=== PATIENT | female | born 1965 | race Hispanic/Latino ===

== ENCOUNTER 2018-04-01 20:07 | Observation (INO) | payer BC ==
[2018-04-01 21:04] LABS: #Basophils 0.1 thou/uL (0.0-0.2); #Eosinphils 0.3 thou/uL (0.0-0.7); #Lymphocytes 3.1 thou/uL (1.20-3.40); #Monocytes 0.5 thou/uL (0.11-0.59); #Neutrophils 3.4 thou/uL (1.40-6.50); %Basophils 1.4 % (0.0-1.0); %Eosinophils 4.4 % (0.0-10.0); %Lymphocytes 41.5 % (21.0-51.0); %Monocytes 6.9 % (0.0-10.0); %Neutrophils 45.7 % (42.0-75.0); Mean Corpuscular HGB CONC 33.3 g/dL (32.0-36.0); Mean Corpuscular Hemoglobin 28.7 pg (27.0-31.0); Mean Corpuscular Volume 86.2 fl (81.0-99.0); Mean Platelet Volume 6.6 fL (7.4-10.4); Platelet Count 247 thou/uL (130-400); RBC Distribution Width 12.4 % (11.5-14.5); Red Blood Cell (RBC) Count 4.54 mill/uL (4.20-5.40); White Blood Cell (WBC) Count 7.4 thou/uL (4.8-10.8)
--- NOTE | 2018-04-01 21:12 | RAD ---
CHEST TWO VIEWS: HISTORY: Pain. COMPARISON: 12/28/2015 and 09/07/2016 FINDINGS: Stable left-sided transvenous pacemaker. Stable cardiac silhouette. Pulmonary vessels are within no rmal limits. Costophrenic angles are clear. No masses or consolidation. No pneumothorax or osseous abnormalities. IMPRESSION: No acute cardiopulmonary process. POS: PPP
[2018-04-01 21:28] LABS: ALT (SGPT) 15 U/L (8-55); AST (SGOT) 17 U/L (5-34); Albumin 3.8 g/dL (3.5-5.0); Alkaline Phosphatase 95 U/L (40-150); Anion Gap 13 mmol/L (10-20); BUN (Urea Nitrogen) 14 mg/dL (9.8-20.1); Bilirubin, Total 0.5 mg/dL (0.2-1.2); CK (CPK) 57 U/L (29-168); Calc. Creatinine Clearance 0 mL/min (70-130); Calcium 9.1 mg/dL (7.8-10.44); Carbon Dioxide 27 mmol/L (22-29); Chloride 105 mmol/L (98-107); Estimated GFR-MDRD 72; Globulin 3.3 g/dL (2.4-3.5); Glucose 101 mg/dL (70-105); Potassium 3.5 mmol/L (3.5-5.1); Protein, Total 7.1 g/dL (6.0-8.3); Sodium 141 mmol/L (136-145)
[2018-04-01 21:31] LABS: CKMB 0.3 ng/mL (0-6.6); Troponin I Less than 0.010 ng/mL (< 0.028)
[2018-04-02] MEDS ORDERED: Ondansetron ODT 4 MG TAB SL PRN (00:12)
[2018-04-02] MEDS ORDERED: Ondansetron HCl/PF 4 MG/2 ML Vial IVP PRN (00:12)
[2018-04-02 00:23] LABS: Troponin I Less than 0.010 ng/mL (< 0.028)
[2018-04-02 00:25] VITALS: BMI 44.3
[2018-04-02 03:18] LABS: Troponin I Less than 0.010 ng/mL (< 0.028)
[2018-04-02] MEDS ORDERED: Guaifenesin DM 100-10/5 ML UDCUP PO PRN (03:36)
[2018-04-02] MEDS ORDERED: Acetaminophen 325 MG TAB PO PRN (03:36)
[2018-04-02] MEDS ORDERED: ALPRAZolam 0.25 MG TAB PO PRN (03:36)
[2018-04-02 05:25] LABS: Cardiac Risk 3.4 (Less than 4.5)
--- NOTE | 2018-04-02 05:28 | HP ---
REASON FOR ADMISSION: Chest pain. HISTORY OF PRESENTING ILLNESS: The patient gives history of being in bed around 8:00 p.m. yesterday. She started developing sharp retrosternal chest pain, which was 10/10 in intensity. This was worse with breathing. After a few minutes, the sharp pain became heaviness in her chest all across. In v iew of her having a pacemaker, her drove her to the emergency room. In the waiting room, her chest heaviness was slowly easing up, but the patient developed headache. She denies taking any nit roglycerin tablets. No complaints of cough or expectoration. No complaints of fever. PAST MEDICAL AND SURGICAL HISTORY: History of pacemaker. Last stress test was [address] Isai suggs's office, which was abnormal and she had a cardiac catheterization done then with no flow limit ing disease per patient. Has had right knee replacement, cholecystectomy, x3, tonsillectom y, hysterectomy, hypertension, anxiety disorder, allergic bronchitis. CURRENT MEDICATIONS: Toprol-XL 50 mg daily, Nexium 40 mg daily, aspirin 81 mg p.o. daily, Xanax 0.25 mg p.o. q.6 hourly p.r.n., Singulair 10 mg daily, Prozac 20 mg daily. ALLERGIES: No known drug allergies. PERSONAL HISTORY: Does not abuse alcohol or drugs. No history of smoking. Lives with her . FAMILY HISTORY: Father at the age of 85 years, he has had history of emphysema and heart failur e. Mother of massive DC at the age of 64 years. REVIEW OF SYSTEMS: The following complete review of systems was negative, unless otherwise mentioned in the HPI or below: Constitutional: Weight loss or gain, ability to conduct usual activities. Sk in: Rash, itching. Eyes: Double vision, pain. ENT/Mouth: Nose bleeding, neck stiffness, pain, te nderness. Cardiovascular: Palpitations, dyspnea on exertion, orthopnea. Respiratory: Shortness of breath, wheezing, cough, hemoptysis, fever or night sweats. Gastrointestinal: Poor appetite, abdom inal pain, heartburn, nausea, vomiting, constipation, or diarrhea. Genitourinary: Urgency, frequenc y, dysuria, nocturia. Musculoskeletal: Pain, swelling. Neurologic/Psychiatric: Anxiety, depressio n. Allergy/Immunologic: Skin rash, bleeding tendency. PHYSICAL EXAMINATION: GENERAL: The patient is a 52-year-old female, who is currently chest pain free and is not in any acu te distress. VITAL SIGNS: Blood pressure 150/82, pulse 84 per minute, respiratory rate 20 per minute, saturating 96% on room air, temperature 98.4 degrees Fahrenheit. NECK: Supple, no elevated JVD. HEENT: Eyes: Extraocular muscles intact. Pupils are reacting to light. Oral cavity mucous membran es are moist. No exudates or congestion. CARDIOVASCULAR SYSTEM: S1, S2 heard. Regular rhythm. RESPIRATORY SYSTEM: Air entry 2+ bilateral. No rales or rhonchi. ABDOMEN: Soft, bowel sounds heard. No tenderness, rigidity or guarding. EXTREMITIES: No peripheral edema or calf tenderness. VASCULAR SYSTEM: Peripheral pulses 1+ bilateral, no ischemic ulcerations or gangrene. CENTRAL NERVOUS SYSTEM: No gross focal deficits seen. The patient is alert, awake, oriented well. PSYCHIATRIC SYSTEM: The patient's mood is euthymic. No hallucinations or delusions. LABORATORY AND X-RAY FINDINGS: EKG done shows normal sinus rhythm at 78 beats per minute, no gross S T-T wave changes. Chest x-ray done shows no acute cardiopulmonary abnormalities. Troponin x3 is neg ative. Albumin is 3.8. Liver enzymes are within normal limits. BUN 14, creatinine 0.8. Electrolyt es are stable. White count of 7, H&H 13 and 39, platelet count 247, MCV is 86 with 45% neutrophils. CLINICAL IMPRESSION AND PLAN: The patient will be under observation on telemetry for chest pain, rul e out acute coronary syndrome. Her previous stress test was 5 years ago. The patient has atypical c hest pain and in view of multiple risk factors, we will follow ACS evidence based protocol. She will be on a full dose aspirin and we will continue her Prozac and Toprol-XL as before along with Singula ir. We will obtain a nuclear stress test and lipid profile. We will continue to closely monitor her for any hemodynamic compromise.
[2018-04-02] MEDS ORDERED: Aspirin 325 MG TAB PO SCH (09:00)
[2018-04-02] MEDS ORDERED: Non-Formulary Item 1 EACH (Esomeprazole Magnesium [Nexium] 40 MG) PO SCH (09:00)
[2018-04-02] MEDS ORDERED: Famotidine 20 MG TAB PO SCH (09:00)
[2018-04-02] MEDS ORDERED: Montelukast Sodium 10 mg Tablet PO SCH (09:00)
[2018-04-02] MEDS ORDERED: FLUoxetine HCl 20 MG CAP PO SCH (09:00)
[2018-04-02] MEDS ORDERED: Enoxaparin Sodium 40 MG/0.4 ML SYRINGE SC SCH (09:00)
--- NOTE | 2018-04-02 10:34 | PDOC.EVN ---
Event Note - Event Note Event Note: 52 F presenting with chest pain and admitted to rule out ACS. Chest pain free and clinically and hemodynamically stable. Cardiac enzymes negative. Exercise stress test ordered. Will follow patient through her admission.
--- NOTE | 2018-04-02 14:13 | NM ---
CARDIAC SPECT: CLINICAL HISTORY: Chest pain. Hypertension. TECHNIQUE: A stress-only myocardial perfusion scan was performed following the intravenous administration of 31 mCi technetium-99m sestamibi. Pharmacologic stress with Adenosine was monitored and interpreted by Mary Jensen. FINDINGS: Homogeneous tracer distribution is seen in the myocardial segments on the post stress images. GATED SPECT LVEF: 69%. WALL MOTION EXAM: Normal. IMPRESSION: Normal post stress myocardial perfusion scan. POS: HANNAH
[2018-04-02 15:49] VITALS: BP 104/55; TEMP 98
--- NOTE | 2018-04-03 11:48 | DIS ---
DATE OF ADMISSION: 04/01/2018 DATE OF DISCHARGE: 04/02/2018 DISCHARGE DIAGNOSIS: Chest pain, status post pacemaker placement. HISTORY OF PRESENT ILLNESS/HOSPITAL COURSE: Ms. Alvin Carlin is a 52-year-old female who presented to the Emergency Room for chest pain. She reported at about 8:00 p.m. the day before presentation, she developed sharp retrosternal chest pain, 10/10 in intensity, pleuritic in nature. After about 5 minutes, it became a heaviness across her chest. Due to the patient having the chest pacemaker, her decided to drive her to the emergency room. While in the emergency room, her pain gradually resolved, but then she has complained of headache. She denied taking nitroglycerin tablets. She had no cough, fevers or sputum production. Medical history is significant for pacemaker placement. She had a stress test done about 5 years ago which was abnormal, following which she had a cardiac celestina terization done which showed no flow limiting disease. She also had right knee replacement, cholecys tectomy, , tonsillectomy, hysterectomy. She also has hypertension, anxiety disorder, and al lergic bronchitis. While at the emergency room, her physical examination was unremarkable. Labs wer e also largely unremarkable. An EKG done showed normal sinus rhythm with no gross ST wave changes. Chest x-ray showed no acute pulmonary abnormalities. Troponin was trended and was negative x3. Live r enzymes within normal limits. She was admitted under observation on telemetry for chest pain to ru le out ACS. She was started on aspirin. She was continued on her home medications. Her nuclear str ess test showed normal post-stress myocardial perfusion. Patient was then discharged home without in cident. DISCHARGE MEDICATIONS: Nexium 40 mg daily, metoprolol succinate 50 mg daily, Prozac 20 mg daily, Dash ax 0.25 mg 4 times daily as needed for anxiety, aspirin 81 mg daily, Singulair 10 mg daily. PHYSICAL EXAMINATION: VITAL SIGNS: Temperature 98 degree Fahrenheit, pulse rate 68, respiratory rate 18, oxygen saturation 99% on room air, blood pressure 108/56. For further physical examination, refer to today's H&P. LABORATORY DATA: WBC 7.4, hemoglobin 13, platelet count 247. Sodium 141, potassium 3.1, chloride 10 5, carbon dioxide 27, anion gap 13, BUN 14, creatinine 0.83, glucose 101, calcium 9.1. IMAGING: Chest x-ray. PROCEDURES: Cardiac stress test. CONSULTATIONS: None. CONDITION AT DISCHARGE: Stable and improved. DIET: Heart healthy. CARE GOALS: To follow up with her primary care physician within 1 week of discharge. ACTIVITY: Resume as tolerated. DISCHARGE TIME: Sixty-five minutes including chart review and documentation. DISPOSITION: Home.
== END 2018-04-02 18:19 | disposition home or self-care (01) ==
LOC: ERS 20:07 → 2SW 22:58
PROVIDERS: ADMIT Internal Medicine; ATTEND Internal Medicine
DX: R07.9 Chest pain, unspecified (principal); Z95.0 Presence of cardiac pacemaker; Z79.82 Long term (current) use of aspirin; Z79.899 Other long term (current) drug therapy; Z82.49 Family history of ischemic heart disease and other diseases of the circulatory system
CPT/HCPCS: 36415; 71046; 78452; 80053; 80061; 82550; 82553; 84484; 85025; 93005; 93017; A9500; G0378; J0153

== ENCOUNTER 2018-10-02 08:45 | Emergency (ER) | payer BC ==
[2018-10-02] MEDS ORDERED: Ketorolac Tromethamine 30 MG/ML VIAL ONE (09:05)
--- NOTE | 2018-10-02 09:41 | RAD ---
LUMBAR SPINE SERIES 3 VIEWS: HISTORY: Low back pain since yesterday after walking up stairs. FINDINGS: Vertebral bodies are normal in height. There are small osteophytes along the course of the spine. T here is a suggestion that there may be some slight disk narrowing at L5-S1. Pedicles are intact. No acute process is seen. IMPRESSION: Minimal arthritic changes of the spine. POS: MOMO
[2018-10-02 09:58] LABS: Bilirubin Negative (Negative); Blood, Urine Negative (Negative); Clarity CLEAR (Clear); Glucose, Urine (Dipstick) Negative (Negative); Leukocyte Negative (Negative); Nitrite Negative (Negative); Protein, Urine (Dipstick) Negative (Neg-Trace); Specific Gravity, Urine 1.026 (1.002-1.036); pH, Urine 6.5 (5.0-9.0)
[2018-10-02 10:23] LABS: #Basophils 0.1 thou/uL (0.0-0.2); #Eosinphils 0.2 thou/uL (0.0-0.7); #Lymphocytes 2.3 thou/uL (1.20-3.40); #Monocytes 0.4 thou/uL (0.11-0.59); #Neutrophils 3.6 thou/uL (1.40-6.50); %Basophils 0.9 % (0.0-1.0); %Eosinophils 3.1 % (0.0-10.0); %Lymphocytes 34.9 % (21.0-51.0); %Monocytes 5.7 % (0.0-10.0); %Neutrophils 55.3 % (42.0-75.0); Hemoglobin 13.3 g/dL (12.0-16.0); Mean Corpuscular HGB CONC 33.7 g/dL (32.0-36.0); Mean Corpuscular Hemoglobin 28.6 pg (27.0-31.0); Mean Corpuscular Volume 84.9 fL (78.0-98.0); Mean Platelet Volume 7.1 fL (7.4-10.4); Platelet Count 278 thou/uL (130-400); RBC Distribution Width 12.1 % (11.5-14.5); Red Blood Cell (RBC) Count 4.63 mill/uL (4.20-5.40); White Blood Cell (WBC) Count 6.4 thou/uL (4.8-10.8)
[2018-10-02 10:39] LABS: ALT (SGPT) 13 U/L (8-55); AST (SGOT) 15 U/L (5-34); Albumin 3.8 g/dL (3.5-5.0); Alkaline Phosphatase 95 U/L (40-150); Anion Gap 12 mmol/L (10-20); BUN (Urea Nitrogen) 14 mg/dL (9.8-20.1); Bilirubin, Total 0.6 mg/dL (0.2-1.2); CRP (Inflammatory) 0.78 mg/dL (= or < 0.5); Calc. Creatinine Clearance 0 mL/min (70-130); Calcium 9.2 mg/dL (7.8-10.44); Carbon Dioxide 27 mmol/L (22-29); Chloride 107 mmol/L (98-107); Estimated GFR-MDRD 85; Globulin 3.1 g/dL (2.4-3.5); Glucose 98 mg/dL (70-105); Potassium 3.7 mmol/L (3.5-5.1); Protein, Total 6.9 g/dL (6.0-8.3); Sodium 142 mmol/L (136-145)
[2018-10-02] MEDS ORDERED: Methocarbamol 1 GM in Sodium Chloride 0.9% 250 ML 250 ML IVPB SCH (10:45)
== END 2018-10-02 12:12 | disposition home or self-care (01) ==
LOC: ERS 08:45
DX: M54.5 Low back pain (principal); F32.9 Major depressive disorder, single episode, unspecified; Z79.899 Other long term (current) drug therapy
CPT/HCPCS: 72100; 80053; 81003; 85025; 85652; 86140; 96365; 96372; J1885; J2800; J7050

== ENCOUNTER 2018-10-04 08:22 | Outpatient (CLI) | payer BC | END 2018-10-04 08:23 | disposition home or self-care (01) | LOC: BICMAMMO 08:22 | PROVIDERS: ATTEND Family Medicine | DX: Z12.31 Encounter for screening mammogram for malignant neoplasm of breast (principal); N64.89 Other specified disorders of breast; Z80.3 Family history of malignant neoplasm of breast | CPT/HCPCS: 77063; 77067 ==

== ENCOUNTER 2019-08-15 08:07 | Outpatient (CLI) | payer BC | END 2019-08-15 08:08 | disposition home or self-care (01) | LOC: DTY/OP 08:07 | PROVIDERS: ATTEND Specialist | DX: Z01.818 Encounter for other preprocedural examination (principal); E66.01 Morbid (severe) obesity due to excess calories | CPT/HCPCS: 36415; 80053; 80061; 82306; 82607; 82728; 82746; 83036; 83540; 83970; 84425; 84436; 84443; 84480; 85025; 86677; 97802 ==

== ENCOUNTER 2019-09-25 16:15 | Inpatient (IN) | payer BC ==
--- NOTE | 2019-09-26 08:08 | HP ---
HISTORY OF PRESENT ILLNESS: Raegan Esquivel is a 54-year-old female, [employer] diesel bus mechanic with morbid obesity, 242 pounds, 44 BMI, comorbidities, obstructive sleep apnea, occasionally wears a CPAP at home, depression and anxiety. She has a pacemaker, followed by Dr. Ponce, having the pacemaker since February of 2011. She has stress urinary incontinence. She has had a multiple right knee surgeries and right total knee replacement and was told by Dr. Baker she will need a future left knee replacement. She on May 23, 2019, had a cardiac stress test chemical with Dr. Ponce. Dr. Ponce has endorsed weight loss surgery and states that she is a good candidate. We will obtain records from Dr. Ponce as far as cardiac clearance. She has a history of GERD that only occurs when eating late night meals with her own types of foods and takes p.r.n. PPIs. She has had a past laparoscopic cholecystectomy. She has a sister who has had gastric bypass. The patient has coworkers who have had sleeve gastrectomy. She is interested in the laparoscopic sleeve gastrectomy. She is a good candidate for that. She hopes to improve her quality of life in procrastinate left knee replacement, and when she does need a left knee replacement, she hopes to be in better health with quicker convalescence. She has tried multiple weight loss efforts nonsurgical without durable results. She has lost 25 pounds on phentermine, but of course, now that she has a pacemaker, cannot take phentermine. She has tried altered diet. She has weighed as much as 256 pounds, but has experienced a viral illness recently and has lost weight, but has continued to make dietary changes to improve weight loss. . Tobacco, none. Alcohol, none. regional company hazmat tanker driver, [employer]. Her daughter accompanies her. Children are 39, 36, and 33 years of age. PAST MEDICAL HISTORY: Multiple right knee surgeries, culminating in right total knee replacement. She is followed by Dr. Baker. She will need a left total knee replacement. Pacemaker placement in 2010, tonsillectomy, hysterectomy, laparoscopic cholecystectomy. As noted above, sleep apnea, depression, allergies, anxiety, pacemaker, stress urinary incontinence, arthralgias. REVIEW OF SYSTEMS: A 10-point noncontributory otherwise. She has had upper endoscopy by Dr. Rae in the past. PHYSICAL EXAMINATION: VITAL SIGNS: Height 5 feet 2, 242 pounds, 44 BMI. Blood pressure 132/58, pulse 71, temperature 98.1 degrees. HEAD, EARS, EYES, NOSE, AND THROAT: Unremarkable. LUNGS: Clear to auscultation. CARDIAC: Regular rate and rhythm without murmur or gallop. ABDOMEN: Obese, soft, nontender. No hernias. EXTREMITIES: Unremarkable. No ankle edema. No lymphadenopathy. NEUROLOGIC: Intact. No focal deficit. ASSESSMENT AND PLAN: Morbid obesity, 5 feet 2, 242 pounds, 44 BMI. Comorbidities, sleep apnea, arthralgias, osteoarthritis of left knee, stress urinary incontinence, occasional gastroesophageal reflux disease that should not interfere with her choice for sleeve gastrectomy, arthralgias. The patient is a good candidate with numerous nonsurgical weight loss efforts without durable results, desires laparoscopic sleeve gastrectomy. Risks and benefits discussed. She has attended online seminar and questions answered. Job ID: [id number]
--- NOTE | 2019-09-26 08:08 | HP ---
ADDENDUM: Raegan Esquivel was initially seen in 11/2018 since that time has lost 8 pounds. She is now 5 foot 242 pounds, 44 BMI preoperatively and today 342 pounds, 44 BMI. She has visited our dietitian, seeing a psychologist who believes she is an excellent candidate for surgical weight loss and visited with Dr. Ponce where she has had an echocardiogram revealing an EF of 55% to 60% with normal valvular structures and myocardial perfusion scan on May 07, 2019 that reveals no reversible ischemia and EF 64%. She is endorsed for surgery without contraindications. An EKG is unremarkable. The patient understands risks and benefits, consents. She is motivated and will do well postoperatively. Schedule for laparoscopic sleeve gastrectomy. She had laboratories with elevated H pylori, which she has been treated for. PAST MEDICAL HISTORY: Please see her past medical history as dictated recently. She has a pacemaker, followed by Dr. Ponce. ALLERGIES: NONE. PHYSICAL EXAMINATION: VITAL SIGNS: Initially seen, 342 pounds 44 BMI. Today 344 pounds, 42 BMI, 127/64, 70, heart rate 99.5 degrees. HEAD, EARS, EYES, NOSE AND THROAT: Unremarkable. LUNGS: Clear to auscultation. CARDIAC: Regular rate and rhythm without murmur or gallop. ABDOMEN: Soft, nontender. EXTREMITIES: Unremarkable. ASSESSMENT: Morbid obesity. PLAN: Laparoscopic sleeve gastrectomy. She understands risks and benefits, consents. She has comorbidities of hypertension, depression, osteoarthritis. She has a history of stress urinary incontinence, obesity. Job ID: [id number]
[2019-10-08] MEDS ORDERED: Bupivacaine 0.25% HCL 30 ML VIAL ONE (06:54)
[2019-10-08] MEDS ORDERED: Fentanyl 250 MCG/5 ML VIAL ONE (06:57)
[2019-10-08] MEDS ORDERED: Acetaminophen 1,000 MG in Premix Bag 1 BAG IVPB SCH (07:00)
[2019-10-08] MEDS ORDERED: Ketorolac Tromethamine 30 MG/ML VIAL IVP SCH (07:00)
[2019-10-08] MEDS ORDERED: Scopolamine 1.5 mg/72 hour Patch TOP SCH (07:00)
[2019-10-08] MEDS ORDERED: Heparin 5,000 UNITS/ML VIAL SC SCH (07:00)
[2019-10-08] MEDS ORDERED: cefOXitin 2 GM in Sodium Chloride 0.9% 100 ML IVPB SCH (07:00)
[2019-10-08] MEDS ORDERED: Lidocaine 1% w/Epinephrine 1:100K 20 ML VIAL ONE (08:03)
[2019-10-08] MEDS ORDERED: PROPOFOL 200 MG/20 ML VIAL ONE (09:34)
[2019-10-08] MEDS ORDERED: Ondansetron PF 4 MG/2 ML Vial ONE (09:34)
[2019-10-08] MEDS ORDERED: Glycopyrrolate 0.2 MG/ML 5 ML SYRINGE ONE (09:34)
[2019-10-08] MEDS ORDERED: Dexamethasone 20 MG/5 ML VIAL ONE (09:34)
[2019-10-08] MEDS ORDERED: Rocuronium Bromide 10 MG/ML (10ML VIAL) ONE (09:34)
--- NOTE | 2019-10-08 11:42 | OP ---
DATE OF PROCEDURE: 10/08/2019 PREOPERATIVE DIAGNOSIS: 1. Morbid obesity . 2. Sleep apnea. 3. Arthralgias. 4. Degenerative joint disease and need of a possible future knee. 5. Pacemaker status. POSTOPERATIVE DIAGNOSES: 1. Morbid obesity . 2. Sleep apnea. 3. Arthralgias. 4. Degenerative joint disease and need of a possible future knee. 5. Pacemaker status. PROCEDURE PERFORMED: 1. Laparoscopic sleeve gastrectomy, 36-[place] bougie. 2. Completion upper endoscopy, visualizing the pylorus. No staple reinforcers used. ANESTHESIA: General, local with 0.5% Marcaine 30 mL mixed with 1% Xylocaine with epinephrine 30 mL. DESCRIPTION OF PROCEDURE: The patient was taken to the operating room, where in the supine position under general anesthesia, she was placed in reverse Trendelenburg and abdomen prepared with ChloraPrep, draped in routine fashion. Local anesthetic mixture was infiltrated into the skin and subcutaneous tissue about each port site, total volume used. Supraumbilical incision made and pneumoperitoneum to 15 mmHg obtained with a Veress needle, replaced it with a 5 port, video laparoscope inserted. Bilateral midclavicular upper abdominal incision was made and a 15 mm port placed on the left and 12 mm port placed on the right and bilateral far lateral subcostal incision made and a 5 port was placed. Subxiphoid incision was made, and Marie liver retractor inserted, reflected in the left lobe of the liver anteriorly, and visualized angle of His. Hiatal hernia not present. Adjacent to the greater curvature of stomach distally, junction proximal 2/3 and distal 1/3. Omentum was taken down with the LigaSure, entering the lesser sac, dividing the gastrocolic ligament adjacent to the greater curvature with 2 aviles to the LigaSure up to the angle of His, visualizing this. Distally within 4 cm of pylorus, the gastrocolic ligament dissected free and freed. A 36-[place] bougie was then placed orally by Anesthesia, visualized laparoscopically, positioned in the distal stomach, initial green load stapler fired on the antrum, taking care not to encroach too tightly on the bougie, and then a gold fire and blue fire serially, completing the sleeve gastrectomy, leaving an ample room with the angle of His to avoid encroachment. Stomach removed from the 15-mm port site, which was closed with a GraNee needle, [id number] suture of 0 Vicryl. Staple line hemostasis was gained with clips. Completion endoscopy performed as I have placed the endoscope per os under direct visualization, passed throughout the esophagus, throughout the sleeve gastrectomy, visualized the pylorus, noting good hemostasis with absence of narrowing. Scope withdrawn. Stomach sleeve deflated and the scope removed. Laparoscopically, there were no bleeding or leaks. Irrigant and pneumoperitoneum evacuated. All instruments removed. All skin incisions were approximated with interrupted subdermal 4-0 Monocryl and [place] glue applied. The patient tolerated the procedure well. Job ID: [id number]
[2019-10-08] MEDS ORDERED: Ondansetron ODT 4 MG TAB PO PRN (12:19)
[2019-10-08] MEDS ORDERED: traMADol HCl 50 MG TAB PO PRN ×2 (12:21)
[2019-10-08] MEDS ORDERED: Morphine 2 MG/ML SYRINGE SLOW IVP PRN (12:21)
[2019-10-08] MEDS ORDERED: ALPRAZolam 0.25 MG TAB PO PRN (12:22)
[2019-10-08] MEDS ORDERED: Morphine 4 MG/ML VIAL SLOW IVP PRN (12:22)
[2019-10-08] MEDS ORDERED: Hydrocodone-Acetamin 15 ML UDCUP PO PRN (12:23)
[2019-10-08] MEDS: Lactated Ringer's 1,000 ML IV SCH ×3 (13:32→22:55)
[2019-10-08] MEDS: Ondansetron PF 4 MG/2 ML Vial IVP PRN ×2 (13:38→20:38)
[2019-10-08 15:16] VITALS: BMI 41.3
[2019-10-08] MEDS: Ketorolac Tromethamine 30 MG/ML VIAL IVP SCH ×2 (17:47→23:00)
[2019-10-08] MEDS: Acetaminophen 1,000 MG in Premix Bag 1 BAG IVPB SCH ×2 (17:50→22:59)
[2019-10-08] MEDS ORDERED: Enoxaparin Sodium 40 MG/0.4 ML SYRINGE SC SCH (21:00)
[2019-10-08] MEDS ORDERED: FLUoxetine HCl 20 MG CAP PO SCH (21:00)
[2019-10-09 05:34] LABS: #Lymphocytes 1.5 thou/uL (1.20-3.40); #Monocytes 0.6 thou/uL (0.11-0.59); #Neutrophils 5.3 thou/uL (1.40-6.50); %Eosinophils 0.3 % (0.0-10.0); %Lymphocytes 19.9 % (21.0-51.0); %Monocytes 7.6 % (0.0-10.0); %Neutrophils 72.1 % (42.0-75.0); Hemoglobin 12.2 g/dL (12.0-16.0); Mean Corpuscular HGB CONC 33.7 g/dL (32.0-36.0); Mean Corpuscular Hemoglobin 29.6 pg (27.0-31.0); Mean Corpuscular Volume 87.7 fL (78.0-98.0); Mean Platelet Volume 7.3 fL (7.4-10.4); Platelet Count 208 thou/uL (130-400); RBC Distribution Width 11.9 % (11.5-14.5); Red Blood Cell (RBC) Count 4.14 mill/uL (4.20-5.40); White Blood Cell (WBC) Count 7.4 thou/uL (4.8-10.8)
[2019-10-09] MEDS: Ketorolac Tromethamine 30 MG/ML VIAL IVP SCH (05:51)
[2019-10-09] MEDS: Acetaminophen 1,000 MG in Premix Bag 1 BAG IVPB SCH (05:51)
[2019-10-09 06:01] LABS: Anion Gap 11 mmol/L (10-20); BUN (Urea Nitrogen) 10 mg/dL (9.8-20.1); Calc. Creatinine Clearance 137 mL/min (70-130); Carbon Dioxide 25 mmol/L (22-29); Chloride 104 mmol/L (98-107); Estimated GFR-MDRD 81; Glucose 87 mg/dL (70-105); Sodium 136 mmol/L (136-145)
[2019-10-09 08:14] VITALS: TEMP 97.3
[2019-10-09 09:03] VITALS: BP 131/76
[2019-10-09] MEDS ORDERED: Hydrocodone-Acetamin 15 ML UDCUP PO PRN (18:00)
[2019-10-09] MEDS ORDERED: Acetaminophen 500 MG TAB PO PRN (18:00)
--- NOTE | 2019-10-09 21:28 | EKG ---
Test Reason : PREOP Blood Pressure : / mmHG Vent. Rate : 061 BPM Atrial Rate : 060 BPM P-R Int : 000 ms QRS Dur : 086 ms QT Int : 374 ms P-R-T Axes : 000 055 028 degrees QTc Int : 376 ms Electronic atrial pacemaker When compared with ECG of 01-APR-2018 20:13, Electronic atrial pacemaker has replaced Sinus rhythm Non-specific change in ST segment in Lateral leads Confirmed by Amy CONCEPCION ([id number]) on 10/09/2019 9:28:35 PM Referred By: KALINA Confirmed By:Amy CONCEPCION
--- NOTE | 2019-10-10 04:31 | DIS ---
DATE OF ADMISSION: 10/08/2019 DATE OF DISCHARGE: 10/09/2019 DISCHARGE DIAGNOSIS: Morbid obesity. 5 feet 2; first seen, 242 pounds, 44 body mass index; immediately preoperatively, 242 pounds, 44 body mass index. Preop evaluation consisted of dietary visit, psychology visit, dietary education, preoperative cardiology visit with Dr. Ponce. Echocardiogram revealed an EF 55% to 60% with normal valvular structures and myocardial perfusion scan May 07, 2019, without reversible ischemia, EF 64%. The patient treated for H pylori preoperatively. The patient admitted postoperatively after undergoing laparoscopic sleeve gastrectomy and completion endoscopy. Postop, she did well, tolerated her liquids. Discharge hemoglobin 12, white count 7.4, renal function normal. Postoperatively, the patient's activity as tolerated without lifting restrictions. Diet as per postoperative bariatric protocol, clear liquids for 2 weeks, pureed 2-4 weeks, and soft to regular food 4-6 weeks, bariatric diet. Follow up in my office in 1 to 2 weeks. Lortab elixir given, although she may not need to fill it. She will take Tylenol [id number]. She will resume her home medications, Singulair, Toprol, Nexium, Xanax, Prozac, and aspirin. Job ID: [id number]
== END 2019-10-09 11:22 | disposition home or self-care (01) | DRG 621 ==
LOC: SURG A 10-08 05:30
PROVIDERS: ADMIT Specialist; ATTEND Specialist
PROC: 0DB64Z3 Excision of Stomach, Percutaneous Endoscopic Approach, Vertical (ICD-10-PCS; principal; 2019-10-08)
PROC: 0DJ08ZZ Inspection of Upper Intestinal Tract, Via Natural or Artificial Opening Endoscopic (ICD-10-PCS; 2019-10-08)
DX: E66.01 Morbid (severe) obesity due to excess calories (principal); Z95.0 Presence of cardiac pacemaker; Z68.41 Body mass index [BMI] 40.0-44.9, adult; G47.33 Obstructive sleep apnea (adult) (pediatric); F32.9 Major depressive disorder, single episode, unspecified; F41.9 Anxiety disorder, unspecified; Z96.651 Presence of right artificial knee joint; K21.9 Gastro-esophageal reflux disease without esophagitis; Z90.710 Acquired absence of both cervix and uterus; N39.3 Stress incontinence (female) (male); M25.50 Pain in unspecified joint; M17.12 Unilateral primary osteoarthritis, left knee; I10 Essential (primary) hypertension
CPT/HCPCS: 36415; 80048; 85025; 88307; 88312; 93005; 93010; J0131; J1100; J1650; J1885; J2405; J2704; J3010; S0020

== ENCOUNTER 2019-10-06 09:56 | Outpatient (CLI) | payer BC ==
--- NOTE | 2019-10-06 10:28 | MMO ---
Bilateral MAMMO Bilat Screen [facility]. CLINICAL HISTORY: Patient is 54 years old and is seen for screening. The patient has the following family history of breast cancer: maternal aunt, malignant (generic) and paternal aunt, malignant (generic). The patient has no personal history of cancer. The patient has a history of left Cyst Aspiration in Mar, 2015 - benign. VIEWS: The views performed were: bilateral craniocaudal with tomosynthesis; bilateral mediolateral oblique with tomosynthesis; and right mediolateral oblique. FILMS COMPARED: The present examination has been compared to prior imaging studies performed at [facility] on 08/25/2015, 08/30/2016, 10/03/2017 and 10/04/2018. This study has been interpreted with the assistance of computer-aided detection. MAMMOGRAM FINDINGS: There are scattered fibroglandular densities. There are no suspicious masses, suspicious calcifications, or new areas of architectural distortion. IMPRESSION: THERE IS NO MAMMOGRAPHIC EVIDENCE OF MALIGNANCY. A ROUTINE FOLLOW-UP MAMMOGRAM IN 1 YEAR IS RECOMMENDED. THE RESULTS OF THIS EXAM WERE SENT TO THE PATIENT. ACR BI-RADS Category 1 - Negative MAMMOGRAPHY NOTE: 1. A negative mammogram report should not delay a biopsy if a dominant of clinically suspicious mass is present. 2. Approximately 10% to 15% of breast cancers are not detected by mammography. 3. Adenosis and dense breasts may obscure an underlying neoplasm. Reported by: MIKE IVAN MD Electonically Signed: [id number]
== END 2019-10-06 09:57 | disposition home or self-care (01) ==
LOC: BICMAMMO 09:56
PROVIDERS: ATTEND Family Medicine
DX: Z12.31 Encounter for screening mammogram for malignant neoplasm of breast (principal); Z80.3 Family history of malignant neoplasm of breast
CPT/HCPCS: 77063; 77067

== ENCOUNTER 2020-03-22 17:06 | Observation (INO) | payer BC ==
[2020-03-22] MEDS ORDERED: Ondansetron PF 4 MG/2 ML Vial ONE (17:19)
[2020-03-22] MEDS ORDERED: Morphine 4 MG/ML VIAL ONE (17:19)
--- NOTE | 2020-03-22 17:28 | RAD ---
Exam: One view pelvis HISTORY: Patient fell. Pain FINDINGS: Sacral ala are preserved. Symmetric signal and joints. Intact pelvis. Contour of both femor al heads are maintained. Symmetric hip joint spaces. There are lucencies projecting over the right femoral neck and intertrochanteric region which are likely due to overlying soft tissue. If the patie nt is unable to bear weight and has right hip pain, dedicated two-view right hip radiograph is recommended. IMPRESSION: 1. No definite fracture 2. Likely artifact projecting over the right femoral neck and intertrochanteric region. Dedicated rig ht hip radiographs if clinically warranted.
[2020-03-22 17:35] LABS: #Basophils 0.1 thou/uL (0.0-0.2); #Eosinphils 0.1 thou/uL (0.0-0.7); #Lymphocytes 2.7 thou/uL (1.20-3.40); #Monocytes 0.4 thou/uL (0.11-0.59); #Neutrophils 4.2 thou/uL (1.40-6.50); %Basophils 0.7 % (0.0-1.0); %Eosinophils 1.2 % (0.0-10.0); %Lymphocytes 36.1 % (21.0-51.0); %Monocytes 4.9 % (0.0-10.0); %Neutrophils 57.2 % (42.0-75.0); Hemoglobin 12.8 g/dL (12.0-16.0); Mean Corpuscular HGB CONC 33.1 g/dL (32.0-36.0); Mean Corpuscular Hemoglobin 29.7 pg (27.0-31.0); Mean Corpuscular Volume 89.8 fL (78.0-98.0); Mean Platelet Volume 7.5 fL (7.4-10.4); Platelet Count 220 thou/uL (130-400); RBC Distribution Width 11.8 % (11.5-14.5); White Blood Cell (WBC) Count 7.4 thou/uL (4.8-10.8)
[2020-03-22 17:44] LABS: PTT 27.2 SEC (22.9-36.1); Prothrombin Time 13.3 sec (12.0-14.7)
[2020-03-22 17:56] LABS: ALT (SGPT) 12 U/L (8-55); AST (SGOT) 18 U/L (5-34); Albumin 3.9 g/dL (3.5-5.0); Alkaline Phosphatase 83 U/L (40-110); Anion Gap 17 mmol/L (10-20); BUN (Urea Nitrogen) 16 mg/dL (9.8-20.1); Bilirubin, Total 0.6 mg/dL (0.2-1.2); Calc. Creatinine Clearance 0 mL/min (70-130); Calcium 9.1 mg/dL (7.8-10.44); Carbon Dioxide 20 mmol/L (22-29); Chloride 107 mmol/L (98-107); Estimated GFR-MDRD 71; Globulin 2.9 g/dL (2.4-3.5); Glucose 153 mg/dL (70-105); Potassium 3.6 mmol/L (3.5-5.1); Protein, Total 6.8 g/dL (6.0-8.3); Sodium 140 mmol/L (136-145)
--- NOTE | 2020-03-22 17:57 | CT ---
LUMBAR SPINE CT WITHOUT CONTRAST: HISTORY: Pain. Fall. Injury. Comparison 10/16/2018 FINDINGS: Visualized retroperitoneal structures, paraspinal muscles and aorta do not demonstrate any posttrauma tic change. Uterus is surgically absent. There is bowel wall thickening involving the distal sigmoid colon and rectum. Correlate with nonemergent sigmoidoscopy. Minimal diverticulosis, without e vidence of diverticulitis. Sacral ala preserved. Vacuum joint phenomenon in both SI joints. Visualized bony pelvis is intact. Sa cral neural foramina are patent. Presacral fat is preserved. 5 lumbar type vertebra. Lumbar spine vertebral body height is maintained. No fracture. No spondylolis thesis or spondylolysis. Limited evaluation of the contents of the central spinal canal and neural foramina due to technique. T12-L1, L1-L2, L2-L3. No significant central canal stenosis or significant neural foraminal narrowing L3-L4: Broad-based disc bulge, ligamentum flavum thickening and facet hypertrophy result in mild cent ral canal stenosis. Mild bilateral neural foraminal narrowing L3-4-L5: Broad-based disc bulge, ligamentum flavum thickening and facet hypertrophy result in moderat e central canal stenosis. Mild bilateral neural foraminal narrowing L5-S1: Vacuum disc phenomenon. Broad-based disc bulge does not cause any significant stenosis of the thecal sac. Right subarticular zone is patent. Minimal encroachment upon the left subarticular zone with partial obscuration of the left S1 nerve root. Mild to moderate bilateral neural foraminal narro wing. Incidental hemangioma involving the posterior right L4 vertebral body. IMPRESSION: 1. No fracture. 2. Degenerative changes as detailed above. 3. Bowel wall thickening which may be due to inadequate distention. Sigmoidoscopy if clinically warra nted. Transcribed Date/Time: 03/22/2020 6:49 PM
--- NOTE | 2020-03-22 18:02 | CT ---
THORACIC SPINE CT WITHOUT CONTRAST: HISTORY: Level 2 trauma. Pain. COMPARISON: None FINDINGS: Visualized mediastinum is limited in evaluation by the lack of IV contrast. No mass, lymphadenopathy or hematoma. Visualized heart size is normal. Small esophageal hernia. Evidence of probable prior bariatric surgery. Visualized upper solid organs are unremarkable. Dependent atelectatic changes in the lung parenchyma. No suspicious consolidation, contusion or yo s. Trachea and central bronchi are patent. Mild compression fracture along the superior endplate of T12. Minimal loss of vertebral body height. Minimal posterior retropulsion. Remaining thoracic vertebra do not demonstrate any evidence of a vertebral body fracture. No spondylolisthesis or spondylolysis. Limited evaluation of the contents of the central spinal canal and neural foramina due to technique. No evidence of significant central canal stenosis or significant neural foraminal narrowing IMPRESSION: Mild compression fracture at the superior aspect of T12. Results of the thoracic spine CT and lumbar spine CT discussed with Sean Coats 03/22/2020 6:01 PM sydnee HUSSEIN Transcribed Date/Time: 03/22/2020 6:50 PM
[2020-03-22 19:27] LABS: Bilirubin Negative (Negative); Blood, Urine Negative (Negative); Clarity Clear (Clear); Glucose, Urine (Dipstick) Normal (Negative); Leukocyte Negative Leu/uL (Negative); Nitrite Negative (Negative); Protein, Urine (Dipstick) 20 mg/dL (Neg-Trace); Urobilinogen 3 mg/dL (Less than 2)
[2020-03-22] MEDS ORDERED: Dexamethasone 10 MG/ML VIAL ONE (20:36)
[2020-03-22] MEDS ORDERED: Ondansetron PF 4 MG/2 ML Vial IVP PRN (22:11)
[2020-03-22] MEDS ORDERED: Dextrose 5% in Water 1,000 ML IV PRN (22:11)
[2020-03-22] MEDS ORDERED: Ondansetron ODT 4 MG TAB PO PRN (22:11)
[2020-03-22] MEDS ORDERED: traMADol HCl 50 MG TAB PO PRN (22:11)
[2020-03-22] MEDS ORDERED: hydrALAZINE 20 MG/ML VIAL SLOW IVP PRN (22:11)
[2020-03-22] MEDS ORDERED: Dextrose 50% Abboject 50 ML SYRINGE SLOW IVP PRN (22:11)
--- NOTE | 2020-03-22 22:16 | HP ---
REQUESTING PHYSICIAN: Dr. Ferguson. CONSULTATIONS: Neurosurgery, Dr. Ardon. HISTORY OF PRESENT ILLNESS: The patient is a 54-year-old woman, who sustained a ground level fall when she slipped in what she reports as less than 1 foot pond, landing on her buttock and some rocks. She was brought to the emergency department, where she complained of numbness and tingling to bilateral lower extremities that has since improved. She states that she has increased sensation from approximately her navel down, but still has a feeling of "heaviness" in her legs. The patient underwent CT evaluation that was unremarkable for bony abnormality or any obvious injuries. Unfortunately, due to her pacemaker, she is unable to undergo MRI. Neurosurgery had evaluated the patient and recommended that she get fitted with a TLSO brace, to be placed on steroids for 24 hours and we will re-evaluate in the morning. The patient denied loss of consciousness. She states that as long as she is being still, her back and her lower extremities do not hurt. ALLERGIES: CELEBBitglass, REPORTS THAT SHE HAS HAD RECENT GASTRIC SLEEVE. CURRENT MEDICATIONS: Metoprolol, Singulair, and fluoxetine. PAST MEDICAL HISTORY: Hypertension and depression. PAST SURGICAL HISTORY: Right knee replacement, pacemaker placement, cholecystectomy, x3, hysterectomy, tonsillectomy, and gastric sleeve. SOCIAL HISTORY: The patient denies drug, tobacco, or alcohol use. Lives at home with family. REVIEW OF SYSTEMS: 10-point review of systems is negative as otherwise stated. PHYSICAL EXAMINATION: VITAL SIGNS: Blood pressure 111/61, heart rate 69, respirations 16, oxygen saturation is 100% on room air, and temperature is 98.1. GENERAL: The patient is resting comfortably in bed. She is awake, alert, conversant, appropriate. Her [place] Coma Scale is 15. HEENT: Head is normocephalic and atraumatic. Eyes, extraocular motion intact. PERRLA bilaterally. Ears are atraumatic without discharge. Nose is atraumatic without discharge. Oropharynx is clear. NECK: Nontender. Trachea is midline. No JVD. The patient was cleared out of her pre-hospital cervical collar. LUNGS: Clear to auscultation with good inspiratory and expiratory effort. HEART: Regular rate and rhythm. ABDOMEN: Soft, flat, and nontender with active bowel sounds. EXTREMITIES: Bilateral upper extremities are unremarkable. They are both neurovascularly intact with 5/5 strength in bilateral lower extremities. The patient reports decreased sensation, though she did have feeling of light touch. Motor, the patient complained of pain when firing her quads or plantar or dorsiflexing her legs. She also complained of low back pain with passive lifting of her legs. She also complained of the inability to actively lift her legs without pain. BACK: By report is atraumatic and nontender. LABORATORY FINDINGS: White blood cell count 7.4, hemoglobin 12.8, hematocrit 38.6, platelets 220. Sodium 140, potassium 3.6, chloride 107, CO2 of 20, BUN 16, creatinine 0.83, glucose 153. LFTs are unremarkable. INR 1.0, PT 13, PTT 27. Urinalysis is unremarkable. RADIOGRAPHIC REPORTS: CT of the thoracic spine without contrast shows a mild compression fracture at the superior aspect of T12. CT of the lumbar spine without contrast shows no fracture. There are degenerative changes but no acute findings were present. AP pelvis shows no definite fracture. There is a questionable lucency felt to be artifact projecting over the right femoral neck and intertrochanteric region that may represent fracture. ASSESSMENT: 1. Status post ground level fall. 2. T12 endplate minimal compression fracture. 3. Bilateral lower extremity paresthesias. 4. Questionable right hip fracture. PLAN: Plan will be to admit the patient to the surgical floor. We will get a dedicated right hip radiograph, though the patient does not complain of distinct pain in this area, only in her low back with range of motion of either lower extremity, primarily left greater than right. The patient will have pain control, pulmonary toilet, gastritis and mechanical VTE prophylaxis. Per Neurosurgery, she will be fitted with a TLSO brace. She will be started on dexamethasone and re-evaluated in the morning. The patient was examined by LAVON Garcia in the emergency department and this patient's evaluation, examination, laboratory and radiographic findings were discussed with Dr. Lang after this dictation. Job ID: [id number]
[2020-03-22 22:50] VITALS: BMI 25.9
[2020-03-22] MEDS: Cyclobenzaprine 10 MG TAB PO PRN (23:18)
[2020-03-22] MEDS: Famotidine/PF 20 mg/2ml Vial SLOW IVP SCH (23:18)
[2020-03-22] MEDS: Sodium Chloride 0.9% 1,000 ML IV SCH (23:19)
[2020-03-23] MEDS: Acetaminophen 325 MG TAB PO SCH ×5 (00:48→23:51)
[2020-03-23] MEDS: Dexamethasone 4 mg/ml Vial SLOW IVP SCH ×5 (00:48→23:51)
--- NOTE | 2020-03-23 02:25 | CON ---
DATE OF CONSULTATION: HISTORY OF PRESENT ILLNESS: The patient is a 54-year-old female with a past medical history of hypertension with pacemaker, who presents per EMS after a mechanical fall. The patient reports that she slipped in a man made pond falling backwards hitting her mid to low back across a rock. The patient reports she had sudden pain in the low back as well as decreased sensation and motor function in the lower extremities. She was brought to the [facility] for additional evaluation. A noncontrast CT was done on arrival, which is notable for a mild compression deformity at T12 with very slight retropulsion. There is no significant canal compromise on these imaging and there is no obvious development of hematoma. The patient does not appear to have coagulopathy and she has normal platelets as well as PT and INR. She does take an 81 mg aspirin daily, but does not take any additional blood thinners. I visited the patient at the bedside and she has decreased sensation from approximately the lower abdomen distally. She is able to feel light, but reports that feels different than above this area. She has very minimal motor function throughout the lower extremities. Her reflexes remain intact. Unfortunately, due to her pacemaker, she is unable to have MRI imaging. She was given 10 mg of IV Decadron in the emergency department. PAST MEDICAL HISTORY: Hypertension, pacemaker placement in 2010. PAST SURGICAL HISTORY: Right knee replacement, pacemaker surgery, cholecystectomy, hysterectomy, tonsillectomy, and gastric sleeve. SOCIAL HISTORY: The patient does not smoke, drink, or use any drugs. REVIEW OF SYSTEMS: Per HPI. ALLERGIES: SHE IS ALLERGIC TO CELEBREX. PHYSICAL EXAMINATION: VITAL SIGNS: Stable. Blood pressure is 137/78, pulse is 77, respiratory rate is 17, and temperature is 98.1. She is 100% on room air. CONSTITUTIONAL: She is awake, alert, and appears to be in no acute distress. HEENT: Head; normocephalic and atraumatic. Eyes; PERRLA. Extraocular movements intact. ENT; oral mucosa is pink, intact, and moist. She has normal voice. NECK: Nontender. Free active range of motion of the cervical spine. No meningismus or nuchal rigidity. BACK: She has some slight tenderness of the upper lumbar spine and lower thoracic region. No obvious step-off. MUSCULOSKELETAL: In the upper extremities, her sensation and motor function are intact. She has normal reflexes in the lower extremities. She has decreased sensation throughout the lower extremities and very minimal motor function. Her reflexes are intact and symmetric throughout the lower extremities. NEUROLOGIC: A and O x4. Neurologic changes of the lower extremities as noted in the musculoskeletal exam. ASSESSMENT AND PLAN: The patient has suffered a mechanical fall with a mild T12 compression fracture with very slight retropulsion. There is no obvious canal compromise or hematoma on the CT imaging. Unfortunately, the patient is unable to have MRI imaging due to her pacemaker. She has no underlying coagulopathy and does not take any blood thinners other than 81 mg aspirin. We will recommend that she go ahead and stop this aspirin. We will keep her on spinal precautions and fit her with a TLSO brace, which she should wear at all times. We will continue her steroids, 4 mg of Decadron q.6h with an H2 sparkle. I suspect she may have underlying cord contusion and we will monitor progress closely. I have discussed the plan with Dr. Ardon. Job ID: [id number]
[2020-03-23] MEDS: traMADol HCl 50 MG TAB PO PRN ×2 (03:29→10:03)
[2020-03-23] MEDS ORDERED: Acetaminophen/Codeine 30-300mg Tablet PO SCH (05:30)
[2020-03-23] MEDS: Senokot S 8.6-50 MG TAB PO SCH ×2 (08:59→20:06)
[2020-03-23] MEDS: Polyethylene Glycol 3350 17 GM Packet PO SCH (08:59)
[2020-03-23] MEDS: Famotidine/PF 20 mg/2ml Vial SLOW IVP SCH ×2 (09:00→20:06)
[2020-03-23] MEDS: Sodium Chloride 0.9% 1,000 ML IV SCH ×2 (09:04→15:34)
--- NOTE | 2020-03-23 10:36 | PRG ---
DATE OF SERVICE: 03/23/2020 The patient was seen and examined. I agree with Ester Ramirez's evaluation on 03/22/2020. The patient is a 54-year-old woman, who fell backwards, striking her back on a rock. On initial evaluation, she was reported of feeling of heaviness in the legs and a feeling of numbness. She also had meaningful back and abdominal pain. CT scan of the thoracic and lumbar spines revealed a mild T12 compression fracture without deformity and without meaningful compression. There were no findings on CT to suggest epidural hematoma or other compressive lesion. The patient has pacemaker that is not compatible with MRI under any circumstance according to Cardiology. This morning, the patient is doing much better. She reports she has normal sensation in the legs, although complains of some left proximal leg and knee pain. With regard to her motor exam, she seems to have reasonably good strength throughout with adequate volition. It does seem difficult to get her to make a full effort, but with a full effort, she does seem strong. This was pain limited in the proximal left leg, but overall I think the motor exam is either full or nearly full. IMPRESSION AND PLAN: T12 compression fracture. We will treat with TLSO brace and the patient can be mobilized in the brace. Spinal cord injury without definitive radiographic explanation. I am not sure as to the etiology of this, but she has already improved dramatically and I anticipate a full recovery. We will get Physical Therapy and Rehab to see her today and wean her steroids over few days. No plans for surgical intervention and we will arrange for outpatient followup for T12 fracture. Job ID: [id number]
[2020-03-23] MEDS ORDERED: Ibuprofen 600 MG TAB PO PRN (12:16)
[2020-03-23] MEDS ORDERED: Acetaminophen/Codeine 30-300mg Tablet PO PRN (12:17)
[2020-03-23] MEDS: Acetaminophen/Codeine 30-300mg Tablet PO SCH ×3 (12:45→23:51)
[2020-03-23] MEDS: Gabapentin 300 MG CAP PO SCH ×2 (15:34→20:06)
--- NOTE | 2020-03-23 15:43 | PRG ---
DATE OF SERVICE: 03/23/2020 SUBJECTIVE: Ms. Esquivel is a 54-year-old woman, status post a ground-level fall, post injury day #1. The patient sustained a T12 endplate compression fracture and was noted with bilateral lower extremity paresthesias. This has improved overnight. This morning, the patient was complaining of left knee and back pain, which she rated at 6/10 to 7/10. She moves all extremities otherwise and denies any numbness or tingling sensation to her lower extremities. She was able to discriminate touch in all her lower extremity digits. OBJECTIVE: VITAL SIGNS: This morning include blood pressure 103/66, pulse is 60, respiratory rate is 18, temperature 97.6 degrees Fahrenheit, and oxygen saturation 96% on room air. HEART: Regular rate and rhythm. LUNGS: Clear to auscultation bilaterally. Breathing, regular and nonlabored. ABDOMEN: Soft, nontender, and nondistended. MUSCULOSKELETAL: 5/5 muscle strength in bilateral upper and lower extremities. Left knee is swollen, but no bony step-offs noted. NEUROLOGIC: No focal deficits present. IMPRESSIONS: 1. Post injury day #1 status post ground-level fall. 2. T12 superior endplate compression fracture. 3. Left knee sprain, rule out fracture. PLAN: 1. We will obtain an x-ray of the left knee to evaluate the posttraumatic knee pain. 2. Increase activity per Physical and Occupational Therapy. 3. Anticipate transfer to inpatient rehabilitation within the next 24 hours upon bed availability and insurance authorization. Job ID: [id number]
--- NOTE | 2020-03-23 16:53 | RAD ---
TWO VIEWS OF THE LEFT KNEE: 03/23/20 COMPARISON: None. HISTORY: Posttraumatic knee pain. FINDINGS: Two views of the left knee shows moderate to severe tricompartment joint space narrowing and osteophy te formation consistent with osteoarthritis. There is no evidence of acute fracture or dislocation. N o knee effusion is seen. Mild soft tissue swelling is seen. IMPRESSION: Moderate to severe left knee osteoarthritis. POS: EAA
[2020-03-23] MEDS: Cyclobenzaprine 10 MG TAB PO PRN (20:06)
--- NOTE | 2020-03-24 02:16 | PRG ---
DATE OF SERVICE: 03/23/2020 SUBJECTIVE: The patient was seen this evening during rounds. She was lying in bed, asleep, with no signs of acute distress. Nursing reported no acute events. OBJECTIVE: VITAL SIGNS: Temperature 98.5, pulse 63, respirations 18, oxygen saturation 94% on room air, blood pressure 97/63. GENERAL: Well-appearing female, lying in bed with no signs of acute distress. PULMONARY: Equal chest rise and fall. No signs of acute respiratory distress. ASSESSMENT: 1. Status post ground level fall. 2. T12 endplate fracture with mild retropulsion. 3. History of hypertension, chronic pacemaker, gastric sleeve. PLAN: Continue current diet and pain regimen. Continue Decadron per Neurosurgery. Discontinue IV fluids. Nursing to discontinue Serra in the morning. The patient pending placement at acute rehab facility. Job ID: [id number]
[2020-03-24] MEDS: Acetaminophen 325 MG TAB PO SCH ×4 (06:07→23:20)
[2020-03-24] MEDS: Acetaminophen/Codeine 30-300mg Tablet PO SCH ×4 (06:07→23:20)
[2020-03-24] MEDS: Dexamethasone 4 mg/ml Vial SLOW IVP SCH (06:07)
--- NOTE | 2020-03-24 07:33 | PRG ---
DATE OF SERVICE: 03/24/2020 SUBJECTIVE: The patient is now 2 days out from her injury where she fell backwards onto a rock hitting her mid to low back with development of a mild T12 compression deformity. Following this event, the patient had sudden loss of sensation and weakness in the legs. This has improved dramatically since her admission. She is now moving her legs easily in the bed and has been ambulating in the [place]neil with the assistance of Physical Therapy. She was fitted with a TLSO brace which she has been wearing at all times. We have started tapering her Decadron and she is now 2 mg p.o. t.i.d. OBJECTIVE: On exam, the patient is awake, alert, in no acute distress. She has good range of motion and good strength in the bed. She perhaps have some subtle left proximal leg weakness, but this appears somewhat limited by pain in her left knee. Her sensation is intact to light touch and she has good lower extremity reflexes. TLSO brace appears to be fitting appropriately. ASSESSMENT AND PLAN: Overall, the patient is doing quite well and has had return of her motor function. We will plan to continue treating her fracture in a TLSO brace. I will plan to follow up in 4 weeks with repeat set of x-rays. We agree that the patient is appropriate for continued immobilization and transition to inpatient rehab if needed. I will continue to taper her steroids over the next few days. We will see in followup in 4 weeks. Job ID: [id number]
[2020-03-24] MEDS: Gabapentin 300 MG CAP PO SCH ×3 (08:04→20:15)
[2020-03-24] MEDS: Senokot S 8.6-50 MG TAB PO SCH ×2 (08:04→20:15)
[2020-03-24] MEDS: Cyclobenzaprine 10 MG TAB PO PRN (08:04)
[2020-03-24] MEDS: Famotidine/PF 20 mg/2ml Vial SLOW IVP SCH ×2 (08:04→20:15)
[2020-03-24] MEDS: Polyethylene Glycol 3350 17 GM Packet PO SCH (08:06)
[2020-03-24] MEDS ORDERED: Dexamethasone 1 MG TAB PO SCH (09:00)
[2020-03-24] MEDS: Dexamethasone 1 MG TAB PO SCH ×4 (09:20→20:14)
[2020-03-24] MEDS: Enoxaparin Sodium 40 MG/0.4 ML SYRINGE SC SCH (10:12)
[2020-03-24] MEDS ORDERED: Calcium Carbonate 500 MG ChewTAB PO PRN (18:49)
--- NOTE | 2020-03-24 19:05 | PRG ---
DATE OF SERVICE: 03/24/2020 SUBJECTIVE: Patient remains on the surgical floor. She is awake, alert, in no distress, sitting up in hospital bed. The patient had no overnight events. The patient reports that her pain is much improved today. The patient is tolerating her regular diet. The patient remains in a TLSO brace. The patient is able to ambulate with physical therapy. The patient's morning dose of metoprolol was held due to decreased heart rate and blood pressure. OBJECTIVE: VITAL SIGNS: Temperature 97.4, pulse 59, respirations 14, SpO2 of 98% on room air, blood pressure 110/68. GENERAL: Well-appearing middle-aged female, awake, alert, in no distress. RESPIRATORY: Bilateral breath sounds clear. Breathing is regular and nonlabored. MUSCULOSKELETAL: Moves all extremities, strength 5/5 in all extremities. NEUROLOGIC: No focal deficits. IMPRESSION: 1. Post injury day #2 status post ground level fall. 2. T12 superior endplate compression fracture. 3. Left knee sprain, fracture ruled out. PLAN: Continue supportive care, pain regimen, increase physical therapy. The patient is pending insurance authorization for inpatient rehab. The patient was examined by Dr. Barrios during morning rounds. Plan was discussed with the patient who agrees. Job ID: [id number]
[2020-03-24] MEDS ORDERED: FLUoxetine HCl 20 MG CAP PO SCH (21:00)
--- NOTE | 2020-03-25 00:35 | PRG ---
DATE OF SERVICE: 03/24/2020 SUBJECTIVE: The patient was seen this evening during rounds. She was resting comfortably in bed, sitting up and asleep with no signs of acute distress. Nursing reported earlier this evening the patient had chest pain, which was described more like indigestion. She received an EKG and Tums and it resolved. EKG demonstrated no concern for ST-segment changes. It essentially showed paced rhythm. OBJECTIVE: VITAL SIGNS: Temperature 97.9, pulse 60, respirations 16, oxygen saturation 96% on room air, blood pressure 107/67. GENERAL: Well-appearing middle-aged female, sitting up in bed, asleep. No signs of acute distress. PULMONARY: Equal chest rise and fall. No signs of acute respiratory distress. ASSESSMENT: 1. Status post ground level fall. 2. T12 endplate fracture with mild retropulsion and spinal cord injury without radiographic evidence. 3. Indigestion, resolved. 4. History of hypertension, pacemaker, and gastric sleeve. PLAN: Continue current diet and pain regimen. Continue to deescalate Decadron as ordered by Neurosurgery. The patient is pending placement at rehab facility and is ready for discharge at this time. Job ID: [id number]
[2020-03-25] MEDS: Acetaminophen 325 MG TAB PO SCH ×2 (05:18→13:40)
[2020-03-25] MEDS: Acetaminophen/Codeine 30-300mg Tablet PO SCH ×2 (05:19→13:41)
[2020-03-25] MEDS: Dexamethasone 1 MG TAB PO SCH (09:30)
[2020-03-25] MEDS: Enoxaparin Sodium 40 MG/0.4 ML SYRINGE SC SCH (09:30)
[2020-03-25] MEDS: Gabapentin 300 MG CAP PO SCH ×2 (09:31→14:55)
[2020-03-25] MEDS: Polyethylene Glycol 3350 17 GM Packet PO SCH (09:31)
[2020-03-25] MEDS: Cyclobenzaprine 10 MG TAB PO PRN (09:32)
[2020-03-25] MEDS: Senokot S 8.6-50 MG TAB PO SCH (09:35)
[2020-03-25] MEDS: Famotidine/PF 20 mg/2ml Vial SLOW IVP SCH (09:39)
[2020-03-25 12:54] VITALS: BP 121/74; TEMP 97.9
[2020-03-25] MEDS ORDERED: Calcium Carbonate 500 MG ChewTAB PO PRN (14:45)
--- NOTE | 2020-03-25 16:19 | PDOC.FMACP ---
Advance Care Planning - Problem (1) Palliative care encounter Status: Acute Code(s): Z51.5 - ENCOUNTER FOR PALLIATIVE CARE (2) HTN (hypertension) Status: Acute Code(s): I10 - ESSENTIAL (PRIMARY) HYPERTENSION (3) Syncope and collapse Status: Acute Code(s): R55 - SYNCOPE AND COLLAPSE (4) Pacemaker Status: Chronic Code(s): Z95.0 - PRESENCE OF CARDIAC PACEMAKER - Note Participants: patient, palliative care Summary: Advanced Care Planning was discussed. The diagnosis, prognosis and goals of care were discussed. Appropriate forms and documentation to accomplish the goals of care were discussed. All questions were answered. The Palliative Care Team will be engaged to assist with completion of any outstanding forms that are needed. Anjelica Dewitt Palliative Care completed MPOA. Mrs Esquivel has listed her daughter as primary decision maker and her as secondary. Paper work complete and placed in chart. Discussed specifics of advance directives. Patient expressed she and her already have plans, "just in care". We discussed while she is healthy to discuss with her family any desires and wishes she would have in the event she is not able to make decisions related to care.
[2020-03-25] MEDS ORDERED: Famotidine 20 MG TAB PO SCH (21:00)
--- NOTE | 2020-03-25 21:59 | EKG ---
Test Reason : CP Blood Pressure : / mmHG Vent. Rate : 061 BPM Atrial Rate : 500 BPM P-R Int : 210 ms QRS Dur : 090 ms QT Int : 368 ms P-R-T Axes : 030 040 039 degrees QTc Int : 370 ms Atrial-paced rhythm with prolonged AV conduction Nonspecific T wave abnormality Abnormal ECG No previous ECGs available Confirmed by Amy CONCEPCION ([id number]) on 03/25/2020 9:59:15 PM Referred By: RAHEEL Confirmed By:Amy CONCEPCION
[2020-03-26] MEDS ORDERED: Dexamethasone 1 MG TAB PO SCH (09:00)
[2020-03-27] MEDS ORDERED: Dexamethasone 1 MG TAB PO SCH (09:00)
== END 2020-03-25 15:15 ==
LOC: ERS 17:06 → INTOOBSV 21:05 → SURG A 21:05
PROVIDERS: ADMIT Specialist; ATTEND Specialist
DX: S24.104A Unspecified injury at T11-T12 level of thoracic spinal cord, initial encounter (principal); S22.080A Wedge compression fracture of T11-T12 vertebra, initial encounter for closed fracture; S83.92XA Sprain of unspecified site of left knee, initial encounter; M17.12 Unilateral primary osteoarthritis, left knee; I10 Essential (primary) hypertension; F32.9 Major depressive disorder, single episode, unspecified; K30 Functional dyspepsia; R55 Syncope and collapse; K44.9 Diaphragmatic hernia without obstruction or gangrene; K57.30 Diverticulosis of large intestine without perforation or abscess without bleeding; Z51.5 Encounter for palliative care; Z79.82 Long term (current) use of aspirin; Z79.899 Other long term (current) drug therapy; Z88.6 Allergy status to analgesic agent; Z95.0 Presence of cardiac pacemaker; Z98.84 Bariatric surgery status; W01.198A Fall on same level from slipping, tripping and stumbling with subsequent striking against other object, initial encounter
CPT/HCPCS: 51702; 72128; 72131; 72170; 80053; 81003; 85025; 85610; 85730; 93005; 93010; 96361; 96372; 96374; 96375; 96376; G0378; G0390; J1100; J1650; J2270; J2405; J8540; S0028

== ENCOUNTER 2020-04-15 07:59 | Outpatient (CLI) | payer BC ==
--- NOTE | 2020-04-15 08:48 | RAD ---
LUMBAR SPINE 2 VIEWS: HISTORY: Followup compression fracture, left-sided pain. COMPARISON: CT thoracic spine 03/22/2020. FINDINGS: There is worsening vertical height loss of the T12 vertebral body when compared to the prior CT. Min imal retropulsion. No significant malalignment. IMPRESSION: Worsening vertical height loss of T12 vertebral body with some superior retropulsion when compared to the prior CT thoracic spine. The remainder of the lumbar spine appears unremarkable. POS: AH
--- NOTE | 2020-04-15 08:49 | RAD ---
THORACIC SPINE 2 VIEWS: HISTORY: T12 compression fracture followup. Left-sided leg pain. FINDINGS: There is evidence for a burst-type fracture involving the T12 vertebral body which shows greater vert ical height loss and retropulsion than when compared to the prior CT scan of 03/22/2020. Minimal spon dylosis. IMPRESSION: Progressive vertical height loss and retropulsion of the T12 vertebral body fracture. POS: AH
== END 2020-04-15 08:00 | disposition home or self-care (01) ==
LOC: BICRAD 07:59
PROVIDERS: ATTEND Physician Assistant
DX: S22.081D Stable burst fracture of T11-T12 vertebra, subsequent encounter for fracture with routine healing (principal)
CPT/HCPCS: 72070; 72100

== ENCOUNTER 2020-05-25 12:13 | Outpatient (CLI) | payer BC ==
--- NOTE | 2020-05-25 12:54 | RAD ---
RADIOGRAPH LUMBAR SPINE 2 VIEWS: DATE: 05/25/2020 HISTORY: 54-year-old female with low back pain M 54.5. Follow-up T12 compression fracture. COMPARISON: 04/15/2020 FINDINGS: 5 lumbar-type vertebrae. There has been interval further loss of height of T12, due to greater degree of broad depression of the superior endplate. Currently approximately 50% loss of height. Bony retropulsion of superior endplate of T12 qualifying this as a burst fracture. The L1-L5 vertebral bod y heights are maintained. Moderate disc space narrowing at L5-S1. The rest of the disc spaces are maintained. No spondylolisthesis. IMPRESSION: Further collapse of the burst fracture of T12, resulting in further loss of height.
--- NOTE | 2020-05-25 12:58 | RAD ---
Radiograph thoracic spine 3 views: 05/25/2020 HISTORY: 54-year-old female with low back pain. Follow-up compression fracture of T12. FINDINGS: 04/15/2020 FINDINGS: There is depression of superior endplate of T12 with approximately 30% loss of height and anterior we dging. Bony retropulsion of superior endplate. Rest of the vertebral body heights are maintained. No interval change overall. IMPRESSION: Burst fracture of T12, unchanged.
== END 2020-05-25 12:14 | disposition home or self-care (01) ==
LOC: TBSIIMAG 12:13
PROVIDERS: ATTEND Neurological Surgery
DX: M54.5 Low back pain (principal); S22.081D Stable burst fracture of T11-T12 vertebra, subsequent encounter for fracture with routine healing
CPT/HCPCS: 72070; 72100

== ENCOUNTER 2020-10-07 07:58 | Outpatient (CLI) | payer BC ==
--- NOTE | 2020-10-07 08:28 | MMO ---
Bilateral MAMMO Bilat Screen [facility]. CLINICAL HISTORY: Patient is 55 years old and is seen for screening. The patient has the following family history of breast cancer: maternal aunt, malignant (generic) and paternal aunt, malignant (generic). The patient has no personal history of cancer. The patient has a history of left Cyst Aspiration in Mar, 2015 - benign. VIEWS: The views performed were: bilateral craniocaudal with tomosynthesis; bilateral mediolateral oblique with tomosynthesis; and left mediolateral oblique. FILMS COMPARED: The present examination has been compared to prior imaging studies performed at [facility] on 08/30/2016, 10/03/2017, 10/04/2018 and 10/06/2019. This study has been interpreted with the assistance of computer-aided detection. MAMMOGRAM FINDINGS: There are scattered fibroglandular densities. There are no suspicious masses, suspicious calcifications, or new areas of architectural distortion. IMPRESSION: THERE IS NO MAMMOGRAPHIC EVIDENCE OF MALIGNANCY. A ROUTINE FOLLOW-UP MAMMOGRAM IN 1 YEAR IS RECOMMENDED. THE RESULTS OF THIS EXAM WERE SENT TO THE PATIENT. ACR BI-RADS Category 1 - Negative MAMMOGRAPHY NOTE: 1. A negative mammogram report should not delay a biopsy if a dominant of clinically suspicious mass is present. 2. Approximately 10% to 15% of breast cancers are not detected by mammography. 3. Adenosis and dense breasts may obscure an underlying neoplasm. Reported by: MIKE IVAN MD Electonically Signed: [id number]
== END 2020-10-07 07:59 | disposition home or self-care (01) ==
LOC: BICMAMMO 07:58
PROVIDERS: ATTEND Family Medicine
DX: Z12.31 Encounter for screening mammogram for malignant neoplasm of breast (principal); Z91.89 Other specified personal risk factors, not elsewhere classified; Z80.3 Family history of malignant neoplasm of breast
CPT/HCPCS: 77063; 77067

== ENCOUNTER 2020-12-12 19:46 | Emergency (ER) | payer BC ==
[~2020-12-12 19:46] MED LIST: Iopamidol-370 76% 500 ML 1 ML ONE
--- NOTE | 2020-12-12 20:26 | RAD ---
PORTABLE CHEST ONE VIEW: Date: 12-12-2020 Time: 8:13 pm History: Weakness, light headedness, dizziness. Comparison: 09-07-16 FINDINGS: The heart size is borderline. There is continued mild elevation of the right hemidiaphragm. Left side d pacemaker device is in place. The lungs are well expanded without lobar consolidation, pneumothorac es, or pleural effusions. IMPRESSION: No acute process. POS: RAMON
[2020-12-12 20:48] LABS: Hemoglobin 12.2 g/dL (12.0-16.0); Mean Corpuscular HGB CONC 33.6 g/dL (32.0-36.0); Mean Corpuscular Hemoglobin 30.1 pg (27.0-31.0); Mean Corpuscular Volume 89.4 fL (78.0-98.0); Mean Platelet Volume 7.2 fL (7.4-10.4); Platelet Count 199 thou/uL (130-400); RBC Distribution Width 11.6 % (11.5-14.5); Red Blood Cell (RBC) Count 4.06 mill/uL (4.20-5.40); White Blood Cell (WBC) Count 6.3 thou/uL (4.8-10.8)
[2020-12-12] MEDS ORDERED: Lorazepam 2 MG/ML VIAL ONE (21:02)
[2020-12-12] MEDS ORDERED: Ketorolac Tromethamine 30 MG/ML VIAL ONE (21:02)
[2020-12-12 21:11] LABS: ALT (SGPT) 10 U/L (8-55); AST (SGOT) 15 U/L (5-34); Albumin 3.9 g/dL (3.5-5.0); Alkaline Phosphatase 90 U/L (40-110); Anion Gap 13 mmol/L (10-20); BUN (Urea Nitrogen) 20 mg/dL (9.8-20.1); Bilirubin, Total 0.3 mg/dL (0.2-1.2); Calc. Creatinine Clearance 0 mL/min (70-130); Calcium 8.7 mg/dL (7.8-10.44); Carbon Dioxide 25 mmol/L (22-29); Chloride 107 mmol/L (98-107); Globulin 2.8 g/dL (2.4-3.5); Glucose 101 mg/dL (70-105); Potassium 3.6 mmol/L (3.5-5.1); Protein, Total 6.7 g/dL (6.0-8.3); Sodium 141 mmol/L (136-145)
[2020-12-12 21:12] LABS: Band 2 % (5-11); Lymphocytes 44 % (21-51); MDiff Complete? YES; Monocytes 2 % (0-10); Neutrophil 44 % (42-75); Platelet Morphology Comment Appears Adequate; RBC Morphology Normal; Reactive Lymphocytes 8 % (0-10)
--- NOTE | 2020-12-12 21:16 | CT ---
CT BRAIN WITHOUT CONTRAST: History: Light headedness, dizziness. FINDINGS: Comparison is made with exam of 09-07-16. No midline shift or abnormal extraaxial fluid collections are seen. The ventricular size is normal an d the basilar cisterns are patent. The bony calvarium is intact. The visualized paranasal sinuses and mastoid air cells are well aerated. IMPRESSION: No CT evidence of acute intracranial process. POS: MZA
[2020-12-12] MEDS ORDERED: Meclizine HCl 25 MG TAB ONE (22:40)
--- NOTE | 2020-12-12 23:19 | CT ---
CT ANGIOGRAM NECK WITH CONTRAST CT ANGIOGRAM BRAIN WITH CONTRAST: DATE: 12/12/2020 HISTORY: 55-year-old female with vertigo TECHNIQUE: After IV contrast injection, arterial bolus chasing technique scan performed from AP window to vertex of head. Coronal and sagittal 3-D MIP reconstructions. FINDINGS: M1 segments of bilateral MCAs have no thrombosis, severe stenosis, or occlusion. A1 and A2 segments of bilateral ACAs, are patent. P1 and P2 segments of bilateral court orderly are patent. Proximal portions of bilateral superior cerebellar are patent Origins of bilateral PICA are patent Basilar and intracranial vertebrals, are normal. Cervical vertebral arteries are patent, normal in caliber with no evidence of dissection or significa nt stenosis. Carotid siphons, cervical internal carotids, common carotids, subclavian sac, and brachiocephalic, ar teries, are normal in caliber with no atheromatous plaque. No dural venous sinus thrombosis. IMPRESSION: Normal
--- NOTE | 2020-12-13 14:38 | CT ---
CT ANGIOGRAM NECK WITH CONTRAST CT ANGIOGRAM BRAIN WITH CONTRAST: DATE: 12/12/2020 HISTORY: 55-year-old female with vertigo TECHNIQUE: After IV contrast injection, arterial bolus chasing technique scan performed from AP window to vertex of head. Coronal and sagittal 3-D MIP reconstructions. FINDINGS: M1 segments of bilateral MCAs have no thrombosis, severe stenosis, or occlusion. A1 and A2 segments of bilateral ACAs, are patent. P1 and P2 segments of bilateral english horn player are patent. Proximal portions of bilateral superior cerebellar are patent Origins of bilateral PICA are patent Basilar and intracranial vertebrals, are normal. Cervical vertebral arteries are patent, normal in caliber with no evidence of dissection or significa nt stenosis. Carotid siphons, cervical internal carotids, common carotids, subclavian sac, and brachiocephalic, ar teries, are normal in caliber with no atheromatous plaque. No dural venous sinus thrombosis. IMPRESSION: Normal Transcribed Date/Time: 12/13/2020 2:37 PM
== END 2020-12-13 00:39 | disposition home or self-care (01) ==
LOC: ERS 19:46
DX: H81.399 Other peripheral vertigo, unspecified ear (principal); E86.0 Dehydration
CPT/HCPCS: 36415; 70450; 70496; 70498; 71045; 80053; 83880; 84484; 85025; 93005; 96374; 96375; J1885; J2060; Q9967

== ENCOUNTER 2021-10-10 08:14 | Outpatient (CLI) | payer BC | END 2021-10-10 08:15 | disposition home or self-care (01) | LOC: BICMAMMO 08:14 | PROVIDERS: ATTEND Family Medicine | DX: Z12.31 Encounter for screening mammogram for malignant neoplasm of breast (principal); N63.10 Unspecified lump in the right breast, unspecified quadrant; Z80.3 Family history of malignant neoplasm of breast | CPT/HCPCS: 77063; 77067 ==

== ENCOUNTER 2021-10-12 13:51 | Outpatient (CLI) | payer BC | END 2021-10-12 13:52 | disposition home or self-care (01) | LOC: BICULT 13:51 | PROVIDERS: ATTEND Family Medicine | DX: N63.10 Unspecified lump in the right breast, unspecified quadrant (principal) ==

== ENCOUNTER 2021-10-31 13:45 | Outpatient (CLI) | payer BC | END 2021-10-31 13:46 | disposition home or self-care (01) | LOC: BICCT 13:45 | PROVIDERS: ATTEND Specialist | DX: M51.16 Intervertebral disc disorders with radiculopathy, lumbar region (principal); M47.817 Spondylosis without myelopathy or radiculopathy, lumbosacral region; Z98.890 Other specified postprocedural states | CPT/HCPCS: 72131 ==

== ENCOUNTER 2022-12-06 11:43 | Outpatient (CLI) | payer BC | END 2022-12-06 11:44 | disposition home or self-care (01) | LOC: BICMAMMO 11:43 | PROVIDERS: ATTEND Family Medicine | DX: Z12.31 Encounter for screening mammogram for malignant neoplasm of breast (principal); Z91.89 Other specified personal risk factors, not elsewhere classified; Z80.3 Family history of malignant neoplasm of breast | CPT/HCPCS: 77063; 77067 ==

== ENCOUNTER 2023-12-07 07:41 | Outpatient (CLI) | payer BC | END 2023-12-07 07:42 | disposition home or self-care (01) | LOC: BICMAMMO 07:41 | PROVIDERS: ATTEND Family Medicine | DX: Z12.31 Encounter for screening mammogram for malignant neoplasm of breast (principal); Z80.3 Family history of malignant neoplasm of breast; Z98.82 Breast implant status | CPT/HCPCS: 77063; 77067 ==